=== PATIENT | male | born 1985 | race Caucasian/White ===

== ENCOUNTER 2018-09-10 11:08 | Emergency (ER) | payer OTHER, SELFPAY ==
[2018-09-10 11:10] VITALS: BP 132/87; PULSE 81; RESP 17; TEMP 36.4; O2SAT 100
--- NOTE | 2018-09-10 11:14 | ED.HA ---
HPI - Headache General Chief Complaint: Headache Stated Complaint: MIGRAINE,VOMITING Time Seen by Provider: 09/10/18 11:09 Source: patient Mode of arrival: ambulatory Limitations: no limitations History of Present Illness HPI Narrative: Patient is a 33-year-old otherwise healthy male here for evaluation of a headache. He states that it started this morning when he woke up. He does have a history of headaches. Last 1 was approximately 1 year ago. He did take a Imitrex pill at home however vomited up. No fevers. No neck pain. No trauma. He states that this does feel like his prior headaches. No neck pain. Came in because he thought he was because of the vomiting. Related Data Previous Rx's Medication Instructions Recorded clonazepam [Klonopin] 0.5 mg PO BIDP PRN #60 01/29/17 olopatadine [Patanol] 2 drp OPHTH SEE INSTRUCTIONS #5 ml 02/08/17 ondansetron 4 mg PO Q6-8H PRN #7 tab 09/10/18 Allergies Allergy/AdvReac Type Severity Reaction Status Date / Time erythromycin base Allergy Mild HIVES Unverified 09/10/18 11:45 [ERYTHROMYCIN BASE] ibuprofen [IBUPROFEN] Allergy Mild HIVES Unverified 09/10/18 11:45 Sulfa (Sulfonamide Allergy Mild UNSURE Unverified 09/10/18 11:45 Antibiotics) [SULFA (SULFONAMIDE ANTIBIOTICS)] aspirin AdvReac Hives Verified 09/10/18 11:45 [place]PE Allergy Mild VOMITING Uncoded 09/10/18 11:45 Review of Systems Constitutional Denies fever(s) and Reports headache(s) ENT Ears, Nose, Mouth, and Throat: Denies vertigo, Denies dizziness, Reports headache(s) and Denies disequilibrium Cardiovascular Denies chest pain, Denies syncope and Denies dyspnea Respiratory Denies dyspnea Gastrointestinal Gastrointestinal: Denies abdominal pain, Reports nausea and Reports vomiting Musculoskeletal Denies myalgias and Denies arthralgias Integumentary/Breasts Denies rash Neurologic Denies vertigo, Denies dizziness, Denies syncope, Reports headache(s) and Denies disequilibrium Comments: Photophobia Hematologic/Lymphatic Comments: Not on anticoagulation Allergic/Immunologic Denies urticaria PFSH Medical History Headache (Acute) Surgical History No pertinent past surgical history (Acute) Social History lives independently: Yes Exam Initial Vital Signs Initial Vital Signs: Vital Signs Temperature 97.5 F L 09/10/18 11:10 Pulse Rate 81 09/10/18 11:10 Respiratory Rate 17 09/10/18 11:10 Blood Pressure 132/87 09/10/18 11:10 Pulse Oximetry 100 09/10/18 11:10 Const General: cooperative, comfortable, well developed, No well groomed and No acute distress Orientation: alert, awake and oriented x3 HENMT Head: normal to inspection and normocephalic Ears: hearing grossly normal bilaterally Nose: external nose normal Face and sinus: normal facial exam Mouth: oral mucosae normal Neck Neck: no meningeal signs Lymphatic: No lymphadenopathy Resp Effort & Inspection: normal respiratory effort Auscultation: clear to auscultation bilaterally Cardio Rate: regular rate Rhythm: regular rhythm GI Inspection: non-distended Skin Lesions: no lesions Rashes: no rashes Neuro General: alert, awake and oriented x3 Cranial Nerves: CN's II-XI intact bilaterally Cognition: normal cognition Speech: speech normal Motor: muscle tone normal throughout Sensory Exam: no sensory deficits noted Extrem General: normal to inspection and capillary refill normal Psych Appearance: grossly normal and well kempt Course Orders Ordered: Discontinued Medications Diphenhydramine HCl (Benadryl) 25 mg IV NOW ONE Stop: 09/10/18 11:24 Last Admin: 09/10/18 11:45 Dose: 25 mg Sodium Chloride (Normal Saline 0.9%) 1,000 mls @ 1,000 mls/hr IV BOLUS ONE Stop: 09/10/18 12:22 Last Infusion: 09/10/18 13:25 Dose: 0 mls/hr Admin: 09/10/18 11:46 Dose: 1,000 mls/hr Metoclopramide HCl (Reglan) 10 mg IV NOW ONE Stop: 09/10/18 11:24 Last Admin: 09/10/18 11:46 Dose: 10 mg Vital Signs - 8 hr 09/10/18 11:10 09/10/18 13:05 Temperature 97.5 F L Pulse Rate 81 86 Respiratory Rate 17 17 Blood Pressure 132/87 Blood Pressure [Left Arm] 118/65 Pulse Oximetry 100 100 MDM - Headache MDM Narrative Medical decision making narrative: Patient without signs of meningitis. Low suspicion for subarachnoid hemorrhage. Reports a great improvement of his symptoms after the IV medications here in the emergency department. Patient states he felt like he can go home. He was tolerating oral intake. Will send home with nausea medicine. He was given return precautions. He expressed understanding and agreement with plan. Discharge Plan Departure Patient Disposition: Home Clinical Impression: Headache Instructions: DI for Headache Activity Restrictions/Additional Instructions: Take all of your medications as directed. Return to the emergency department for any new or worsening symptoms Prescriptions: New ondansetron 4 mg tablet,disintegrating 4 mg PO Q6-8H PRN (Reason: nausea and vomiting) Qty: 7 RF: 0 No Action clonazepam [Klonopin] 0.5 MG tablet 0.5 mg PO BIDP PRNQty: 60 RF: 0 olopatadine [Patanol] 5 ML drops 2 drp OPHTH SEE INSTRUCTIONS Qty: 5 RF: 1
[2018-09-10] MEDS: diphenhydrAMINE 50 MG/ML VIAL 25 MG IV (11:45)
[2018-09-10] MEDS: METOCLOPRAMIDE 10 MG/2 ML INJ IV (11:46)
[2018-09-10] MEDS: SODIUM CHLORIDE 0.9% 1,000 ML 1000 ML IV (11:46)
[2018-09-10 13:05] VITALS: BP 118/65; PULSE 86; RESP 17; O2SAT 100
[2018-09-10 14:00] VITALS: BP 113/62; PULSE 70; O2SAT 99
== END 2018-09-10 14:09 | disposition home or self-care (01) ==
PROVIDERS: Emergency Provider Emergency Medicine; PCP Family Medicine
DX: R51 Headache (principal)
CPT/HCPCS: 96361; 96374; 96375; 99283; 99284; J1200; J2765

== ENCOUNTER → 2019-01-30 11:18 | Outpatient (CLI) | payer OTHER, SELFPAY ==
[2019-01-30 11:26] LABS: Bacteria Urine None Seen; RBC Urine None Seen (0-5/HPF); WBC Urine None Seen (0-5/HPF)
[2019-01-30 12:28] LABS: Appearance Urine UA CLEAR; Bilirubin Urine UA NEGATIVE (NEGATIVE); Color Urine UA YELLOW; Glucose Urine UA NEGATIVE (Negative); Ketones Urine UA NEGATIVE (NEGATIVE); Leukocyte Esterase Urine UA NEGATIVE (NEGATIVE); Nitrite Urine UA NEGATIVE (Negative); Occult Blood Urine UA NEGATIVE (Negative); Protein Urine UA NEGATIVE (Negative); Specific Gravity Urine UA 1.025 (1.000-1.035); Urobilinogen Urine UA 0.2 E.U./dL (0.2); pH Urine UA 6.5 (4.5-8.0)
[2019-01-30 12:34] LABS: Add Manual Diff / Slide Review NO; Basophils Absolute Auto 0 /uL (0-100); Basophils Percent Auto 0.1 % (0-2); Eosinophils Absolute Auto 2000 /uL (0-450); Hematocrit 46.5 % (41-53); Hemoglobin 15.9 g/dL (13.5-17.5); Lymphocytes Absolute Auto 1500 /uL (1100-4500); Mean Corpuscular HGB Conc 34.3 % (30-36); Mean Corpuscular Hemoglobin 29.1 PG (26-34); Mean Corpuscular Volume 84.7 fL (80-100); Monocytes Absolute Auto 500 /uL (0-900); Monocytes Percent Auto 7.3 % (3-14); Neutrophils Absolute Auto 3300 /uL (1500-7000); Neutrophils Percent Auto 45.5 % (50-75); Platelet Count 240 X10^3/uL (150-400); Red Blood Cell Count 5.49 X10^6/uL (4.5-5.9); Red Cell Distribution Width 12.9 % (11.6-14.8); White Blood Cell Count 7.3 X10^3/uL (4.5-11.0)
[2019-01-30 12:36] LABS: Eosinophils Percent Auto 27.1 % (2-4)
[2019-01-30 12:41] LABS: Culture Indicated Urine Cult Not Indicated; Squamous Epithelial Cell Urine None Seen (0-5/HPF)
[2019-01-30 12:51] LABS: Alanine Aminotransferase 16 IU/L (21-72); Albumin 4.6 g/dL (3.5-5.0); Albumin Globulin Ratio 1.5 (1.0-2.8); Alkaline Phosphatase 70 U/L (38-126); Amylase 74 U/L (30-110); Aspartate Aminotransferase 27 IU/L (17-59); BUN Creatinine Ratio 16.3 (6-22); Bilirubin Total 0.8 mg/dL (0.2-1.3); Blood Urea Nitrogen 13 mg/dL (9-20); Calcium 9.6 mg/dL (8.4-10.2); Carbon Dioxide 30 mmol/L (22-32); Chloride 102 mmol/L (98-107); Cholesterol 220 mg/dL (140-199); Estimated Glomerular Filt Rate > 60.0 mL/min (>60); Glucose 93 mg/dL (70-100); HDL Cholesterol 49 mg/dL (40-60); HEMOLYSIS < 15 (0-50); LDL Cholesterol Calculated 139 mg/dL (<100); Lipase 50 U/L (23-300); Sodium 142 mmol/L (137-145); Total Protein 7.6 g/dL (6.3-8.2); Triglycerides 159 mg/dL (35-150)
== END ==
PROVIDERS: PCP Family Medicine; Visit Provider Family Medicine
DX: E78.2 Mixed hyperlipidemia (principal); Z13.6 Encounter for screening for cardiovascular disorders; R10.9 Unspecified abdominal pain
CPT/HCPCS: 36415; 80053; 80061; 81001; 82150; 83013; 83690; 85025

== ENCOUNTER → 2019-02-27 14:16 | Outpatient (CLI) | payer OTHER, SELFPAY ==
--- NOTE | 2019-02-27 14:18 | DI.CT.S_ITS ---
PROCEDURE: CT ABDOMEN PELVIS W CON INDICATIONS: abdominal pain TECHNIQUE: After the administration of oral and intravenous contrast, 5 mm thick sections acquired from the diaphragms to the symphysis. 5 mm thick coronal and sagittal reformats were performed. For radiation dose reduction, the following was used: automated exposure control, adjustment of mA and/or kV according to patient size. COMPARISON: None. FINDINGS: Image quality: Excellent. ABDOMEN: Lung bases: Lung bases are clear. Heart size is normal. Solid organs: Liver is normal in size and enhancement. Gallbladder negative. Biliary system is non-dilated. Pancreas enhances normally. Spleen is normal in size and enhancement. No adrenal nodules. Kidneys are normal in size and enhancement, without hydronephrosis. Peritoneum and bowel: Stomach, small bowel, and colon loops are normal in caliber and wall thickness. No free fluid or air. The appendix is within normal limits Rectum is grossly unremarkable Nodes and vessels: No retroperitoneal or mesenteric adenopathy. Aorta and inferior vena cava are normal in caliber. Miscellaneous: Tiny fat containing umbilical hernia. PELVIS: Genitourinary: Bladder wall thickness is normal. Miscellaneous: No inguinal hernias or adenopathy. Bones: No suspicious bony lesions. No vertebral body compression fractures. IMPRESSION: No acute process. Normal appearance of the appendix. Dictated by: Slade Salmeron M.D. on 02/27/2019 at 16:32 Approved by: Slade Salmeron M.D. on 02/27/2019 at 16:37
== END ==
PROVIDERS: PCP Family Medicine; Visit Provider Family Medicine
DX: R10.9 Unspecified abdominal pain (principal); R11.2 Nausea with vomiting, unspecified; R19.7 Diarrhea, unspecified
CPT/HCPCS: 74177; Q9967

== ENCOUNTER → 2019-03-01 16:18 | Outpatient (CLI) | payer OTHER, SELFPAY ==
[2019-03-01 18:04] LABS: Urine N gonorrhoeae NOT DETECTED
[2019-03-01 18:15] LABS: Urine Chlamydia NOT DETECTED
== END ==
PROVIDERS: PCP Family Medicine; Visit Provider Family Medicine
DX: N34.2 Other urethritis (principal)
CPT/HCPCS: 87491; 87591

== ENCOUNTER → 2020-05-20 09:58 | Outpatient (CLI) | payer OTHER, SELFPAY ==
[2020-05-20 10:30] LABS: Add Manual Diff / Slide Review NO; Basophils Absolute Auto 0 /uL (0-100); Basophils Percent Auto 0.7 % (0-2); Eosinophils Absolute Auto 200 /uL (0-450); Eosinophils Percent Auto 3.2 % (2-4); Hemoglobin 16.5 g/dL (13.5-17.5); Lymphocytes Absolute Auto 1700 /uL (1100-4500); Lymphocytes Percent Auto 25.5 % (25-40); Mean Corpuscular HGB Conc 35.1 % (30-36); Mean Corpuscular Hemoglobin 29.8 PG (26-34); Mean Corpuscular Volume 84.8 fL (80-100); Monocytes Absolute Auto 500 /uL (0-900); Monocytes Percent Auto 7.1 % (3-14); Neutrophils Absolute Auto 4300 /uL (1500-7000); Neutrophils Percent Auto 63.5 % (50-75); Platelet Count 208 X10^3/uL (150-400); Red Blood Cell Count 5.54 X10^6/uL (4.5-5.9); White Blood Cell Count 6.8 X10^3/uL (4.5-11.0)
[2020-05-20 11:08] LABS: Alanine Aminotransferase 26 IU/L (<50); Albumin 4.8 g/dL (3.5-5.0); Albumin Globulin Ratio 1.5 (1.0-2.8); Alkaline Phosphatase 87 U/L (38-126); Aspartate Aminotransferase 37 IU/L (17-59); BUN Creatinine Ratio 14.9 (6-22); Bilirubin Total 0.8 mg/dL (0.2-1.3); Blood Urea Nitrogen 11 mg/dL (9-20); Calcium 9.9 mg/dL (8.4-10.2); Carbon Dioxide 27 mmol/L (22-32); Chloride 101 mmol/L (98-107); Estimated Glomerular Filt Rate > 60.0 mL/min (>60); Globulin 3.3 g/dL (1.7-4.1); Glucose 104 mg/dL (70-100); HDL Cholesterol 58 mg/dL (40-60); HEMOLYSIS < 15 (0-50); Potassium 4.4 mmol/L (3.4-5.1); Sodium 137 mmol/L (137-145); Total Protein 8.1 g/dL (6.3-8.2); Triglycerides 463 mg/dL (35-150)
[2020-05-20 11:13] LABS: Cholesterol 336 mg/dL (140-199)
== END ==
PROVIDERS: PCP Family Medicine; Referring Provider Family Medicine; Visit Provider Family Medicine
DX: Z00.00 Encounter for general adult medical examination without abnormal findings (principal); E78.2 Mixed hyperlipidemia
CPT/HCPCS: 36415; 80053; 80061; 85025

== ENCOUNTER 2021-01-15 21:23 | Emergency (ER) | payer OTHER, SELFPAY ==
[2021-01-15 21:40] VITALS: BP 151/85; PULSE 96; RESP 17; TEMP 38.7; O2SAT 97; BMI 28.8
[2021-01-15 23:03] LABS: Adenovirus Not Detected (Not Detect); B. parapertussis Not Detected (Not Detecte); Bordetella pertussis Not Detected (Not Detecte); Chlamydophila pneumoniae Not Detected (Not Detect); Coronavirus 229E Not Detected (Not Detect); Coronavirus HKU1 Not Detected (Not Detect); Coronavirus NL 63 Not Detected (Not Detect); Coronavirus OC43 Not Detected (Not Detect); Human Metapneumovirus Not Detected (Not Detect); Human Rhinovirus/Enterovirus Not Detected (Not Detect); Influenza A Not Detected (Not Detect); Influenza B Not Detected (Not Detect); Mycoplasma pneumoniae Not Detected (Not Detect); Parainfluenza Virus 1 Not Detected (Not Detect); Parainfluenza Virus 2 Not Detected (Not Detect); Parainfluenza Virus 3 Not Detected (Not Detect); Parainfluenza Virus 4 Not Detected (Not Detect); Respiratory Syncytial Virus Not Detected (Not Detect); SARS- CoV-2 Not Detected (Not Detecte)
--- NOTE | 2021-01-16 00:03 | ED_ITS ---
HPI - URI/Sore Throat General Chief Complaint: Upper Respiratory Symptoms Stated Complaint: feels like he has the flu Time Seen by Provider: 01/15/21 23:14 Source: patient Mode of arrival: Ambulatory Limitations: no limitations History of Present Illness HPI Narrative: Patient complains fever body aches and chills since this morning. No coughing nausea vomiting diarrhea. No urinary complaints. Denies any sick contacts. No COVID exposure. Patient is allergic to Motrin. Took Tylenol at 7:30 p.m. tonight. Has had off and on headache. No neck pain. No rash. Related Data Previous Rx's Medication Instructions Recorded atorvastatin 10 mg tablet 10 mg PO DAILY #90 tab 05/30/20 clonazepam 0.5 mg tablet See Rx Instructions PO BID #60 tab 06/19/20 sumatriptan succinate 50 mg tablet See Rx Instructions PO .COMPLEX 06/19/20 #14 tab Allergies Allergy/AdvReac Type Severity Reaction Status Date / Time erythromycin base Allergy Mild HIVES Verified 06/19/20 15:56 [ERYTHROMYCIN BASE] ibuprofen [IBUPROFEN] Allergy Mild HIVES Verified 06/19/20 15:56 Sulfa (Sulfonamide Allergy Mild UNSURE Verified 06/19/20 15:56 Antibiotics) [SULFA (SULFONAMIDE ANTIBIOTICS)] aspirin AdvReac Hives Verified 06/19/20 15:56 [place] Allergy Mild VOMITING Uncoded 06/19/20 15:56 Review of Systems Review of Systems Narrative: GENERAL: Complaint chills, fatigue, malaise, fever, sweats. HEENT: Denies sinus pain, ear pain, sore throat RESPIRATORY: Denies dyspnea, cough CARDIOVASCULAR: Denies chest pain, palpitations GASTROINTESTINAL: Denies nausea, vomiting, abdominal pain : Denies dysuria, frequency, hematuria MUSCULOSKELETAL: Complains muscle or bony pain SKIN: Denies rash, skin lesions NEUROLOGIC: Denies weakness, numbness ROS Unobtainable: All systems reviewed & are unremarkable except as noted in HPI and below Patient History Medical History Headache Surgical History No pertinent past surgical history Social History lives independently: Yes Smoking Status: Never smoker Smoking Status: Never smoker alcohol intake frequency: 0-2 drinks per day Substance Use Type: does not use Exam Narrative Exam Narrative: GENERAL: in no distress, not toxic not dyspneic HEAD: Normocephalic. EYES: Pupils equal round No scleral icterus. No injection no discharge ENT: Mucous membranes moist. NECK: Trachea midline. Full active range of motion of the neck without any pain. No meningeal signs. CARDIOVASCULAR: Regular rate and rhythm without murmurs RESPIRATORY: Clear to auscultation. Breath sounds equal bilaterally. No wheezes, rales, or rhonchi. GASTROINTESTINAL: Abdomen soft, non-tender EXTREMITIES: No gross deformities. BACK: No flank tenderness. NEURO: AOx4. SKIN: Warm and dry PSYCH: Not anxious, is cooperative Initial Vital Signs Initial Vital Signs: Vital Signs Temperature 101.6 F H 01/15/21 21:40 Pulse Rate 96 H 01/15/21 21:40 Respiratory Rate 17 01/15/21 21:40 Blood Pressure 151/85 H 01/15/21 21:40 Pulse Oximetry 97 01/15/21 21:40 Course Orders Ordered: ED Orders 01/15/21 21:44 Respiratory Panel (Film Array) Stat 01/16/21 00:04 XR chest 2V Stat Vital Signs Vital signs: Vital Signs - 8 hr 01/15/21 21:40 01/16/21 00:57 Temperature 101.6 F H 98.7 F Pulse Rate 96 H 85 Respiratory Rate 17 14 Blood Pressure 151/85 H 132/76 Pulse Oximetry 97 98 MDM - URI/Sore Throat Differential Diagnosis Differential diagnosis: Likely upper respiratory infection, viral infection and other (COVID) Lab Data Attestation: I reviewed the patient's lab results. Labs: Lab Results 01/15/21 Range/Units 21:44 Chlamy pneumoniae PCR Not detected (Not Detect) Adenovirus (PCR) Not detected (Not Detect) B. pertussis DNA (PCR) Not detected (Not Detecte) B.parapertussis DNA PCR Not detected (Not Detecte) Coronavirus OC43 (PCR) Not detected (Not Detect) Coronavirus HKU1 (PCR) Not detected (Not Detect) Coronavirus 229E (PCR) Not detected (Not Detect) SARS-CoV-2 (PCR) Not detected (Not Detecte) Coronavirus NL63 (PCR) Not detected (Not Detect) Human Metapneumovir PCR Not detected (Not Detect) Influenza Type A (PCR) Not detected (Not Detect) Influenza Type B (PCR) Not detected (Not Detect) M. pneumoniae (PCR) Not detected (Not Detect) Parainfluenza 1 (PCR) Not detected (Not Detect) Parainfluenza 2 (PCR) Not detected (Not Detect) Parainfluenza 3 (PCR) Not detected (Not Detect) Parainfluenza 4 (PCR) Not detected (Not Detect) RSV (PCR) Not detected (Not Detect) Entero/Rhino (PCR) Not detected (Not Detect) Point of Care Testing Rapid Strep A Negative Imaging Data Chest x-ray: Radiologist's Impression: X-ray chest two view read by overnight radiologist no acute process. MDM Narrative Medical decision making narrative: Appropriate for discharge home. Vital signs reassuring exam reassuring. No meningeal signs. No spinal tap at this time. No headache at this time. Not toxic. No known neck pain. No blood work i ndicated this time. Patient not toxic appearing. Spoke with patient could be false negative COVID test or possibly too early for positive COVID test. He will continue to quarantine himself until fever free. Discharge Plan Departure Patient Disposition: Home Clinical Impression: Viral infection Instructions: DI for Viral Syndrome Activity Restrictions/Additional Instructions: Return if worse or any questions concerns. Continue in Tylenol for pain and fever. See family doctor this week for recheck. Your testing has shown negative for COVID infection. Please continue to quarantine at this time until fever free without use of Tylenol. Various infections are contagious if you continue to have a fever. Keep well hydrated. Prescriptions: No Action atorvastatin 10 mg tablet 10 mg PO DAILY Qty: 90 RF: 3 clonazepam 0.5 mg tablet See Rx Instructions PO BID Qty: 60 RF: 5 sumatriptan succinate [Imitrex] 50 mg tablet See Rx Instructions PO .COMPLEX Qty: 14 RF: 5 Referrals: Joseph Saavedra MD [Primary Care Provider] - Stand Alone Forms: Work Release Note
--- NOTE | 2021-01-16 00:04 | DI.RAD.S_ITS ---
PROCEDURE: XR CHEST 2V INDICATIONS: Fever TECHNIQUE: 2 views of the chest were acquired. COMPARISON: None. FINDINGS: Surgical changes and devices: None. Lungs and pleura: Lungs are clear. No pleural effusions or pneumothorax. Mediastinum: Mediastinal contours are normal. Heart size is normal. Bones and chest wall: No suspicious bony abnormalities. Soft tissues appear unremarkable. IMPRESSION: No acute cardiopulmonary disease process. Dictated by: Jessica English MD, PhD on 01/16/2021 at 8:37 Approved by: Jessica English MD, PhD on 01/16/2021 at 8:38
[2021-01-16 00:57] VITALS: BP 132/76; PULSE 85; RESP 14; TEMP 37.1; O2SAT 98
== END 2021-01-16 00:58 | disposition home or self-care (01) ==
PROVIDERS: Emergency Provider Emergency Medicine; PCP Family Medicine
DX: B34.9 Viral infection, unspecified (principal); R51.9 Headache, unspecified; Z20.822 Contact with and (suspected) exposure to COVID-19
CPT/HCPCS: 71046; 87633; 87880; 99282; 99283

== ENCOUNTER → 2021-04-02 12:29 | Outpatient (CLI) | payer OTHER, SELFPAY ==
[2021-04-02 13:51] LABS: COVID19 -Nasal RAPID Negative (Negative)
== END ==
PROVIDERS: PCP Family Medicine; Visit Provider Nurse Practitioner
DX: Z20.822 Contact with and (suspected) exposure to COVID-19 (principal)
CPT/HCPCS: 87635

== ENCOUNTER → 2021-04-30 09:45 | Outpatient (CLI) | payer OTHER, SELFPAY ==
[2021-04-30 12:09] LABS: COVID19 -Nasal RAPID Negative (Negative)
== END ==
PROVIDERS: PCP Family Medicine; Visit Provider Specialist
DX: Z01.812 Encounter for preprocedural laboratory examination (principal); Z20.822 Contact with and (suspected) exposure to COVID-19
CPT/HCPCS: 87635; C9803

== ENCOUNTER 2021-05-02 06:49 | Day surgery (SDC) | payer OTHER, SELFPAY ==
[2021-05-02] VITALS (7 sets, daily range): BP systolic 113–132; BP diastolic 73–82; PULSE 53–81; RESP 12–16; TEMP 36.2–36.6; O2SAT 98–100; BMI 28.8
[2021-05-02] MEDS: LACTATED RINGERS 1,000 ML 42 ML IV (07:33)
--- NOTE | 2021-05-02 07:44 | PM.HP.1 ---
History of Present Illness History of Present Illness Chief complaint: DX COLONOSCOPY Narrative: The patient is a gentleman who was having rectal bleeding through the month of July. This was with each bowel movement. His bleeding ultimately has stopped but he has very soft stool on crampy abdominal pain. He is brought in for colonoscopy to evaluate this. He desires hemorrhoidal banding if hemorrhoid seem to have been the cause of the problem and they are amenable to banding. Patient History Medical History Headache Surgical History No pertinent past surgical history Family & Social History Family History Father Hypertension Mother Cancer Grandmother Cancer Social History: household members spouse lives independently Yes Tobacco & Substance use: Smoking Status Never smoker alcohol intake frequency 0-2 drinks per day Substance Use Type does not use Meds Home Medications and Allergies Home Medications Medication Instructions Recorded Confirmed Type sodium,potassium,mag sulfates 17.5 See Rx Instructions PO .COMPLEX 04/28/21 Rx gram-3.13 gram-1.6 gram oral soln #354 ml (Suprep Bowel Prep Kit) sumatriptan succinate 50 mg tablet 50 mg PO DAILY PRN 05/02/21 05/02/21 History Allergies Allergy/AdvReac Type Severity Reaction Status Date / Time erythromycin base Allergy Mild HIVES Verified 05/02/21 07:17 [ERYTHROMYCIN BASE] ibuprofen [IBUPROFEN] Allergy Mild HIVES Verified 05/02/21 07:17 Sulfa (Sulfonamide Allergy Mild UNSURE Verified 05/02/21 07:17 Antibiotics) [SULFA (SULFONAMIDE ANTIBIOTICS)] aspirin AdvReac Hives Verified 05/02/21 07:17 [place] Allergy Mild VOMITING Uncoded 03/28/21 14:47 Review of Systems Review of Systems Narrative: Otherwise essentially healthy. Negative review of systems. Exam Vital Signs (past 8 hours): - 05/02/21 07:27 Temperature 97.7 F Pulse Rate 68 Respiratory Rate 16 Blood Pressure 124/79 Pulse Oximetry 98 Oxygen Delivery Method Room Air Narrative Exam Narrative: Pleasant cooperative patient no apparent distress. Lungs are clear to auscultation. No rales or rhonchi. Heart regular rate and rhythm no murmur gallop. Abdomen is soft nontender without mass. No obvious hernias. Patient is alert and oriented x3. Assessment & Plan Assessment and plan (1) Change in bowel habits: Status: Acute (2) Family history of colon cancer in mother: Status: Acute (3) Rectal bleeding: Status: Acute Assessment & Plan narrative: Patient with rectal bleeding and a significant change in his bowel habits which become chronic. He has a family history of colon cancer. I would recommend colonoscopy. Risks and benefits have been discussed with him. He also asked about banding which I explained to him and talked to him about the risk of infection. All questions were answered. Time Spent With Patient Critical Care time: I spent a total of [] minutes of critical care time on this patient's care today; this time is exclusive of procedural time.
--- NOTE | 2021-05-02 07:47 | PM.PREOP ---
Pre-operative Note COVID-19 COVID-19 status: Negative Result date/Date tested (Pos, Neg/Pending): 05/01/21 Interval Note History & Physical reviewed/Exam performed by Physician: Yes Changes to H&P: No ASA Class (for procedural sedation): I
[2021-05-02] MEDS: fentaNYL 250 MCG/5 ML INJ IV (07:57)
[2021-05-02] MEDS: MIDAZOLAM 5 MG/5 ML VIAL IV (07:57)
--- NOTE | 2021-05-02 08:38 | PM.OP.ENDO ---
Operative Date/Time/Diagnoses Date of procedure: 05/02/21 Time of procedure: 08:38 Pre-op diagnosis: Rectal bleeding. Change in bowel habits. Crampy abdominal pain. Post-op diagnosis: same (Possible colitis.) Procedure & Clinicians Study performed: Colonoscopy with cold biopsy. Same procedure as scheduled: Yes Indications: Try to determine cause of rectal bleeding, diarrhea and crampy abdominal pain. Surgeon: Jeffrey Boss Procedure Notes SCOAP/Timeout: Performed Procedure in detail: The patient was placed in the left lateral decubitus position and underwent IV sedation directed by the surgeon consisting of fentanyl and Versed. Digital exam was unremarkable.. The scope was inserted and advanced through the rectum into the sigmoid, descending, transverse, and ascending colon. There was some mild to moderate injection of the wall of the left colon. It seemed to taper off and the appearance became normal as we advanced further. Pressure was applied and we made our way to the cecum. Just beyond the cecum I noted a few diverticuli. Cecum was reached identified by the ileocecal valve and the appendiceal opening. The ileocecal valve was successfully cannulated. The terminal ileum was normal in appearance. There was no evidence of any inflammation of the terminal ileum. The scope was gradually brought out. There were some small polypoid lesions seen. I removed them with cold biopsy forceps. These lesions were found at 60 cm, 35 cm and 15 cm from the anal verge. I suspect that they are lymphatic in nature but am not certain. Random biopsies were taken of the left colon in the rectum. The scope ultimately was retroflexed in the rectum. The appearance was negative for any significant hemorrhoidal disease though there was some minor scarring. The scope was removed and the patient tolerated the procedure well. The prep was excellent. Fluid from the colon was sent for O and P and for GI panel. Scope withdrawal time: 13 minutes total Sedation minutes: 31 Findings: colitis (Possible. Left side principally), diverticulosis (Right colon) and polyp (Small polypoid lesions.) Specimen(s): other (Polyps. Random left colon. Random rectum.) Complications: none Post-procedure Recommendations: Will call with biopsy results Follow up: as needed Disposition: PACU
--- NOTE | 2021-05-02 09:17 | SUR.PHASEII ---
pt given discharge instructions. States he understands discharge instructions. Pt denies any pain and nausea. Pt had a cup of orange juice to be discharged with his father.
[2021-05-02 10:07] LABS: Campylobacter Not Detected (Not Detect); Clostridium difficile toxin AB Not Detected (Not Detect); Plesiomonsa shigelloides Not Detected (Not Detect); Salmonella Not Detected (Not Detect)
[2021-05-02 10:08] LABS: Adenovirus F 40/41 Not Detected (Not Detect); Astrovirus Not Detected (Not Detect); Cryptosporidium Not Detected (Not Detect); Cyclospora cayetanensis Not Detected (Not Detect); Entamoeba histolytica Not Detected (Not Detect); Enteroaggregative E.coli Not Detected (Not Detect); Enteropathogenic E.coli Not Detected (Not Detect); Enterotoxigenic E.coli It/st Not Detected (Not Detect); Giardia lamblia Not Detected (Not Detect); Norovirus GI/GII Not Detected (Not Detect); Rotavirus A Not Detected (Not Detect); Sapovirus Not Detected (Not Detect); Shiga-like toxin-prod E.coli Not Detected (Not Detect); Shigella/Enteroinvasive E.coli Not Detected (Not Detect); Vibrio Not Detected (Not Detect); Vibrio cholerae Not Detected (Not Detect); Yersinia enterocolitica Not Detected (Not Detect)
== END 2021-05-02 09:21 | disposition home or self-care (01) ==
PROVIDERS: Referring Provider Specialist; Visit Provider Specialist
PROC: 0DJD8ZZ Inspection of Lower Intestinal Tract, Via Natural or Artificial Opening Endoscopic (ICD-10-PCS; CPT 45378; principal; 2021-05-02 07:45)
DX: K62.5 Hemorrhage of anus and rectum (principal); R19.4 Change in bowel habit; R10.9 Unspecified abdominal pain; K57.30 Diverticulosis of large intestine without perforation or abscess without bleeding; Z80.0 Family history of malignant neoplasm of digestive organs; K63.5 Polyp of colon
CPT/HCPCS: 45380; 87177; 87507; 99152; 99153; J2250; J3010

== ENCOUNTER → 2021-09-08 10:30 | Outpatient (CLI) | payer OTHER, SELFPAY ==
[2021-09-08 11:52] LABS: COVID19 -Nasal RAPID Negative (Negative)
== END ==
PROVIDERS: Referring Provider Physician Assistant; Visit Provider Physician Assistant
DX: Z20.822 Contact with and (suspected) exposure to COVID-19 (principal)
CPT/HCPCS: 87635

== ENCOUNTER → 2022-02-02 15:47 | Outpatient (CLI) | payer OTHER, SELFPAY ==
[2022-02-02 16:48] LABS: Appearance Urine UA CLEAR; Bilirubin Urine UA NEGATIVE (NEGATIVE); Color Urine UA YELLOW; Glucose Urine UA NEGATIVE (Negative); Ketones Urine UA NEGATIVE (NEGATIVE); Leukocyte Esterase Urine UA NEGATIVE (NEGATIVE); Nitrite Urine UA NEGATIVE (Negative); Occult Blood Urine UA NEGATIVE (Negative); Protein Urine UA NEGATIVE (Negative); Specific Gravity Urine UA 1.015 (1.000-1.035); Urobilinogen Urine UA 0.2 E.U./dL (0.2)
[2022-02-02 17:00] LABS: RBC Urine 0-1/HPF (0-5/HPF); Squamous Epithelial Cell Urine 0-1 /HPF (0-5/HPF); Transitional Epi Cells Urine 0-1/HPF (0-5/HPF); WBC Urine 0-1/HPF (0-5/HPF)
[2022-02-02 17:01] LABS: Bacteria Urine None Seen; Culture Indicated Urine Cult Not Indicated
== END ==
PROVIDERS: PCP Pediatrics; Referring Provider Pediatrics; Visit Provider Pediatrics
DX: R10.9 Unspecified abdominal pain (principal); R30.0 Dysuria
CPT/HCPCS: 81001

== ENCOUNTER → 2022-02-02 17:27 | Outpatient (CLI) | payer OTHER, SELFPAY ==
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
--- NOTE | 2022-02-02 17:30 | DI.RAD.S_ITS ---
PROCEDURE: XR KUB INDICATIONS: stone? TECHNIQUE: One view of the abdomen acquired. COMPARISON: None. FINDINGS: Surgical changes and devices: None. Bowel: Bowel gas pattern is normal. Soft tissues: No suspicious abdominal calcifications. Visualized solid organ contours appear normal in size. Bones: No suspicious bony lesions. IMPRESSION: Normal exam. No evidence for urolithiasis or other significant abnormality. Dictated by: Toribio Henry M.D. on 02/03/2022 at 9:17 Approved by: Toribio Henry M.D. on 02/03/2022 at 9:17
== END ==
PROVIDERS: PCP Pediatrics; Referring Provider Pediatrics; Visit Provider Pediatrics
DX: M47.816 Spondylosis without myelopathy or radiculopathy, lumbar region (principal); R30.0 Dysuria; R10.9 Unspecified abdominal pain; M54.9 Dorsalgia, unspecified
CPT/HCPCS: 72100; 74018; 81001

== ENCOUNTER → 2022-10-25 15:54 | Outpatient (CLI) | payer OTHER, SELFPAY ==
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
== END ==
PROVIDERS: PCP Family Medicine; Referring Provider Physician Assistant; Visit Provider Physician Assistant
DX: M54.2 Cervicalgia (principal)
CPT/HCPCS: 72040

== ENCOUNTER → 2023-12-17 10:14 | Outpatient (CLI) | payer OTHER, SELFPAY ==
[2023-12-17 11:14] LABS: Add Manual Diff / Slide Review NO; Basophils Absolute Auto 0 /uL (0-100); Basophils Percent Auto 0.7 % (0-2); Eosinophils Absolute Auto 200 /uL (0-450); Eosinophils Percent Auto 2.8 % (2-4); Hemoglobin 15.7 g/dL (13.5-17.5); Lymphocytes Absolute Auto 1400 /uL (1100-4500); Lymphocytes Percent Auto 21.2 % (25-40); Mean Corpuscular HGB Conc 34.9 % (30-36); Mean Corpuscular Hemoglobin 30.3 PG (26-34); Mean Corpuscular Volume 86.9 fL (80-100); Monocytes Absolute Auto 500 /uL (0-900); Monocytes Percent Auto 7.2 % (3-14); Neutrophils Absolute Auto 4600 /uL (1500-7000); Neutrophils Percent Auto 68.1 % (50-75); Platelet Count 233 X10^3/uL (150-400); Red Blood Cell Count 5.18 X10^6/uL (4.5-5.9); Red Cell Distribution Width 12.9 % (11.6-14.8); White Blood Cell Count 6.8 X10^3/uL (4.5-11.0)
[2023-12-17 11:23] LABS: Hemoglobin A1C% w Est Avg Glu 5.5 % (4.0-6.0)
[2023-12-17 11:36] LABS: Alanine Aminotransferase 32 IU/L (<50); Albumin 4.7 g/dL (3.5-5.0); Albumin Globulin Ratio 1.6 (1.0-2.8); Alkaline Phosphatase 65 U/L (38-126); Aspartate Aminotransferase 39 IU/L (17-59); BUN Creatinine Ratio 18.8 (6-22); Bilirubin Total 0.8 mg/dL (0.2-1.3); Blood Urea Nitrogen 12 mg/dL (9-20); Calcium 9.6 mg/dL (8.4-10.2); Carbon Dioxide 25 mmol/L (22-32); Chloride 104 mmol/L (98-107); Cholesterol 303 mg/dL (140-199); Estimated Glomerular Filt Rate > 60 mL/min (>60); Globulin 2.9 g/dL (1.7-4.1); Glucose 99 mg/dL (70-100); HDL Cholesterol 59 mg/dL (40-60); HEMOLYSIS < 15 (0-50); LDL Cholesterol Calculated 190 mg/dL (<100); Potassium 4.3 mmol/L (3.4-5.1); Sodium 136 mmol/L (137-145); Total Protein 7.6 g/dL (6.3-8.2); Triglycerides 268 mg/dL (35-150)
[2023-12-17 12:01] LABS: TSH w/ Reflex to FT4 1.24 uIU/mL (0.47-4.68)
== END ==
PROVIDERS: PCP Family Medicine; Referring Provider Family Medicine; Visit Provider Family Medicine
DX: Z00.00 Encounter for general adult medical examination without abnormal findings (principal); G43.909 Migraine, unspecified, not intractable, without status migrainosus; E78.2 Mixed hyperlipidemia; K63.5 Polyp of colon
CPT/HCPCS: 36415; 80053; 80061; 83036; 84443; 85025

== ENCOUNTER 2024-06-12 10:09 | Emergency (ER) | payer OTHER, SELFPAY ==
[2024-06-12 10:21] VITALS: BP 154/99; PULSE 88; RESP 17; TEMP 36.6; O2SAT 98; BMI 28.8
--- NOTE | 2024-06-12 11:29 | DI.CT.S_ITS ---
PROCEDURE: CT UE RT W CON INDICATIONS: ?foreign body TECHNIQUE: After the intra-articular administration of 12 mL of dilute non-ionic contrast, 1-1.5 mm thick sections acquired from the acromioclavicular joint to the inferior scapula, with coronal and sagittal reformatting. COMPARISON: None. FINDINGS: Image quality: Excellent. Bones: The acromioclavicular and the glenohumeral joints are remarkable. No acute fracture or dislocation. No erosion or periosteal thickening to suggest osteomyelitis. Soft tissues: A pain marker is placed about the radial aspect of the proximal forearm. There is minimal subcutaneous edema in the anteromedial mid arm (series 5, image 87). No drainable fluid collection. No foreign body in the elbow and upper arm. Muscles are normal in bulk. The axillary, brachial, and visualized ulnar and radial arteries are grossly patent. The venous system is not opacified, likely secondary to contrast timing. IMPRESSION: 1. No foreign body in the elbow and upper arm. 2. Minimal subcutaneous edema in the anteromedial mid arm. 3. No opacification of the venous system in the upper arm, likely secondary to contrast timing. If there is clinical concern for venous thrombosis, Doppler ultrasound can be considered. Dictated by: Serina Thomson M.D. on 06/12/2024 at 14:33 Approved by: Serina Thomson M.D. on 06/12/2024 at 14:43
--- NOTE | 2024-06-12 11:31 | ED_ITS ---
HPI - Skin/Abscess/Foreign Bdy <Indiana Gastelum PA-C - Last Filed: 06/12/24 15:27> General Chief complaint: Skin/Abscess/Foreign Body Stated complaint: Reaction from blood draw. sent from [facility] Time Seen by Provider: 06/12/24 11:23 Source: patient Mode of arrival: Ambulatory History of Present Illness HPI narrative: 38-year-old male presents to the ED with tenderness and erythema in the right antecubital area status post a venous blood draw 1 week ago. Patient endorses chills. No fever, nausea, vomiting, numbness, tingling, weakness. Patient endorses tenderness in the antecubital region, bruising and streaking proximally from the antecubital region. Related Data Previous Rx's Medication Instructions Recorded sumatriptan succinate 50 mg tablet See Rx Instructions PO .COMPLEX 01/12/23 headaches #9 tabs atorvastatin 10 mg tablet 10 mg PO BEDTIME #90 tabs 12/29/23 cephalexin 500 mg capsule 500 mg PO TID 5 days #15 caps 06/12/24 doxycycline hyclate 100 mg capsule 100 mg PO BID 10 days #20 caps 06/12/24 Allergies Allergy/AdvReac Type Severity Reaction Status Date / Time erythromycin base Allergy Mild HIVES Verified 06/12/24 10:23 [ERYTHROMYCIN BASE] ibuprofen [IBUPROFEN] Allergy Mild HIVES Verified 06/12/24 10:23 Sulfa (Sulfonamide Allergy Mild UNSURE Verified 06/12/24 10:23 Antibiotics) [SULFA (SULFONAMIDE ANTIBIOTICS)] aspirin AdvReac Hives Verified 06/12/24 10:23 [place] Allergy Mild VOMITING Uncoded 06/12/24 10:23 Review of Systems <Indiana Gastelum PA-C - Last Filed: 06/12/24 15:27> Constitutional Constitutional: Reports chills, Denies fatigue, Denies fever(s), Denies frequent falls, Denies lethargy and Denies weakness Eyes Eyes: Denies change in vision, Denies eye discharge, Denies irritation and Denies loss of vision ENT Ears, Nose, Mouth, and Throat: Denies change in voice, Denies dizziness, Denies neck pain, Denies sore throat and Denies throat swelling Cardiovascular Cardiovascular: Denies chest pain, Denies irregular heart rhythm, Denies lightheadedness, Denies palpitations, Denies dyspnea, Denies dyspnea on exertion and Denies orthopnea Respiratory Respiratory: Denies cough, Denies dyspnea, Denies dyspnea on exertion and Denies wheezing Gastrointestinal Gastrointestinal: Denies abdominal pain, Denies change in bowel habits, Denies diarrhea, Denies nausea and Denies vomiting Musculoskeletal Musculoskeletal: Denies neck pain and Denies numbness Integumentary/Breasts Skin/Breast: Denies pruritus, Denies erythema, Denies rash and Denies wounds Comments: Tenderness, bruising, streaking from right AC Neurologic Neurologic: Denies behavioral changes, Denies confusion, Denies dizziness, Denies frequent falls, Denies loss of vision, Denies numbness and Denies weakness Psychiatric Psychiatric: Denies anxiety, Denies behavioral changes, Denies confusion, Denies depression, Denies homicidal ideation and Denies suicidal ideation Endocrine Endocrine: Denies fatigue, Denies flushing and Denies palpitations Hematologic/Lymphatic Hematologic/Lymphatic: Denies easy bruising Allergic/Immunologic Allergic/Immunologic: Denies urticaria, Denies throat swelling and Denies wheezing Patient History <Indiana Gastelum PA-C - Last Filed: 06/12/24 15:27> Medical History Back pain Pancreatitis (~2010) Family history of colon cancer in mother Rectal bleeding Epidermal inclusion cyst of left eyelid Headache Surgical History Anesthesia Ransom teeth removed (~2007) Orbital fracture (~2005) No pertinent past surgical history Family History Father Hypertension Mother Cancer Grandmother Cancer Social History household members: spouse lives independently: Yes Smoking Status: Never smoker Smoking Status: Never smoker alcohol intake frequency: other Substance Use Type: does not use Exam <Indiana Gastelum PA-C - Last Filed: 06/12/24 15:27> Narrative Exam Narrative: Const General:?cooperative, healthy appearing and comfortable [facility] Head:?normal to inspection Ears:?hearing grossly normal bilaterally Nose:?external nose normal Face and sinus:?normal facial exam and sinuses nontender Mouth:?oral mucosae normal Throat:?posterior oropharynx normal Eyes General:?appearance normal, both eyes and all related structures Neck Neck:?normal visual inspection and no lymphadenopathy noted Resp Effort & Inspection:?normal respiratory effort Auscultation:?clear to auscultation bilaterally Cardio Rate:?regular rate Rhythm:?regular rhythm Integumentary There is bruising noted in the right AC with erythema streaking from the AC proximally. Tender to palpation. Compartments are soft. Full range of motion. Strength and sensation is intact. Patient is neurovascularly intact. Neuro General:?patient alert, patient awake and patient oriented x3 Initial Vital Signs Initial Vital Signs: Vital Signs Temperature 97.8 F 06/12/24 10:21 Pulse Rate 88 06/12/24 10:21 Respiratory Rate 17 06/12/24 10:21 Blood Pressure 154/99 H 06/12/24 10:21 Pulse Oximetry 98 06/12/24 10:21 Oxygen Delivery Method Room Air 06/12/24 10:21 <DO Jes Carcamo Last Filed: 06/14/24 17:33> Initial Vital Signs Initial Vital Signs: Vital Signs Temperature 97.8 F 06/12/24 10:21 Pulse Rate 88 06/12/24 10:21 Respiratory Rate 17 06/12/24 10:21 Blood Pressure 154/99 H 06/12/24 10:21 Pulse Oximetry 98 06/12/24 10:21 Oxygen Delivery Method Room Air 06/12/24 10:21 Course <Indiana Gastelum PA-C - Last Filed: 06/12/24 15:27> Orders Ordered: ED Orders 06/12/24 11:29 CT UE RT w con Stat 06/12/24 12:15 CBC Auto Diff [Complete Blood Count AUTO DIFF] Stat CMP [Comprehensive Metabolic Panel] Stat Vital Signs Vital signs: Vital Signs - 8 hr 06/12/24 10:21 Temperature 97.8 F Pulse Rate 88 Respiratory Rate 17 Blood Pressure 154/99 H Pulse Oximetry 98 Oxygen Delivery Method Room Air <DO Jes Carcamo Last Filed: 06/14/24 17:33> Orders Ordered: ED Orders 06/12/24 11:29 CT UE RT w con Stat 06/12/24 12:15 CBC Auto Diff [Complete Blood Count AUTO DIFF] Stat CMP [Comprehensive Metabolic Panel] Stat Vital Signs Vital signs: Vital Signs - 8 hr 06/12/24 10:21 Temperature 97.8 F Pulse Rate 88 Respiratory Rate 17 Blood Pressure 154/99 H Pulse Oximetry 98 Oxygen Delivery Method Room Air MDM - Skin/Abscess/Foreign Bdy <Indiana Gastelum PA-C - Last Filed: 06/12/24 15:27> Lab Data 06/12/24 12:15 06/12/24 12:15 Labs: Lab Results 06/12/24 Range/Units 12:15 WBC 8.6 (4.5-11.0) X10^3/uL RBC 5.29 (4.5-5.9) X10^6/uL Hgb 15.9 (13.5-17.5) g/dL Hct 46.0 (41-53) % MCV 87.0 (80-100) fL MCH 30.1 (26-34) PG MCHC 34.6 (30-36) % RDW 12.7 (11.6-14.8) % Plt Count 230 (150-400) X10^3/uL Neut % (Auto) 71.6 (50-75) % Lymph % (Auto) 17.5 L (25-40) % Nobles % (Auto) 7.7 (3-14) % Eos % (Auto) 2.3 (2-4) % Baso % (Auto) 0.9 (0-2) % Neut # (Auto) 6100 (9662-6239) /uL Lymph # (Auto) 1500 (7013-4132) /uL Nobles # (Auto) 700 (0-900) /uL Eos # (Auto) 200 (0-450) /uL Baso # (Auto) 100 (0-100) /uL Sodium 135 L (137-145) mmol/L Potassium 4.4 (3.4-5.1) mmol/L Chloride 100 (98-107) mmol/L Carbon Dioxide 24 (22-32) mmol/L BUN 8 L (9-20) mg/dL Creatinine 0.68 (0.66-1.25) mg/dL Estimated GFR > 60 (>60) mL/min BUN/Creatinine Ratio 11.8 (6-22) Glucose 99 (70-100) mg/dL Calcium 9.3 (8.4-10.2) mg/dL Total Bilirubin 0.8 (0.2-1.3) mg/dL AST 36 (17-59) IU/L ALT 28 (<50) IU/L Alkaline Phosphatase 74 (38-126) U/L Total Protein 7.7 (6.3-8.2) g/dL Albumin 4.7 (3.5-5.0) g/dL Globulin 3.0 (1.7-4.1) g/dL Albumin/Globulin Ratio 1.6 (1.0-2.8) MDM Narrative Medical decision making narrative: 38-year-old male presents to the ED with tenderness and erythema in the right antecubital area status post a venous blood draw 1 week ago. Concern for cellulitis versus abscess versus retained foreign body versus other. Will obtain imaging to rule out foreign body, abscess. Discussed findings with patient. Prescribed antibiotics for cellulitis. Recommend follow-up with PCP. ED return precautions discussed with patient. Patient agrees to monitor the streaking and return to the ED if symptoms worsen. Medical records reviewed: Yes <Rebeca Rodriguez, - Last Filed: 06/14/24 17:33> Lab Data Labs: Lab Results 06/12/24 Range/Units 12:15 WBC 8.6 (4.5-11.0) X10^3/uL RBC 5.29 (4.5-5.9) X10^6/uL Hgb 15.9 (13.5-17.5) g/dL Hct 46.0 (41-53) % MCV 87.0 (80-100) fL MCH 30.1 (26-34) PG MCHC 34.6 (30-36) % RDW 12.7 (11.6-14.8) % Plt Count 230 (150-400) X10^3/uL Neut % (Auto) 71.6 (50-75) % Lymph % (Auto) 17.5 L (25-40) % Nobles % (Auto) 7.7 (3-14) % Eos % (Auto) 2.3 (2-4) % Baso % (Auto) 0.9 (0-2) % Neut # (Auto) 6100 (4677-2665) /uL Lymph # (Auto) 1500 (0242-0083) /uL Nobles # (Auto) 700 (0-900) /uL Eos # (Auto) 200 (0-450) /uL Baso # (Auto) 100 (0-100) /uL Sodium 135 L (137-145) mmol/L Potassium 4.4 (3.4-5.1) mmol/L Chloride 100 (98-107) mmol/L Carbon Dioxide 24 (22-32) mmol/L BUN 8 L (9-20) mg/dL Creatinine 0.68 (0.66-1.25) mg/dL Estimated GFR > 60 (>60) mL/min BUN/Creatinine Ratio 11.8 (6-22) Glucose 99 (70-100) mg/dL Calcium 9.3 (8.4-10.2) mg/dL Total Bilirubin 0.8 (0.2-1.3) mg/dL AST 36 (17-59) IU/L ALT 28 (<50) IU/L Alkaline Phosphatase 74 (38-126) U/L Total Protein 7.7 (6.3-8.2) g/dL Albumin 4.7 (3.5-5.0) g/dL Globulin 3.0 (1.7-4.1) g/dL Albumin/Globulin Ratio 1.6 (1.0-2.8) Discharge Plan Departure Patient Disposition: Home Clinical Impression: Cellulitis Qualifiers: Site of cellulitis: extremity Site of cellulitis of extremity: upper extremity Laterality: right Qualified Code(s): L03.113 - Cellulitis of right upper limb Instructions: DI for Wound Infection Activity Restrictions/Additional Instructions: Were evaluated in the ED today for a infected arm. Your CT scan was normal. It appears that you have a skin infection that is causing your symptoms. You are being prescribed antibiotics. Please take the antibiotics as prescribed. Please follow-up with your PCP as soon as possible. Return to the ED if you have worsening symptoms. Prescriptions: New doxycycline hyclate 100 mg capsule 100 mg PO BID 10 Days Qty: 20 0RF cephalexin 500 mg capsule 500 mg PO TID 5 Days Qty: 15 0RF No Action sumatriptan succinate 50 mg tablet See Rx Instructions PO .COMPLEX MDD 2 Qty: 9 5RF Rx Instructions: take 1 tab at onset of headache; if no relief may repeat 1 tab after at least 2 hrs; max = 4 tabs/24 hr PO atorvastatin 10 mg tablet 10 mg PO BEDTIME Qty: 90 3RF Referrals: [facility]de, [Primary Care Provider] - Stand Alone Forms: Patient Portal/API/Survey ED Sign-out <Rebeca Rodriguez DO - Last Filed: 06/14/24 17:33> Cosign ED Attending Cosignature Attestation: I was immediately available in the department for consultation.
[2024-06-12 12:21] LABS: Add Manual Diff / Slide Review NO; Basophils Absolute Auto 100 /uL (0-100); Basophils Percent Auto 0.9 % (0-2); Eosinophils Absolute Auto 200 /uL (0-450); Eosinophils Percent Auto 2.3 % (2-4); Hemoglobin 15.9 g/dL (13.5-17.5); Lymphocytes Absolute Auto 1500 /uL (1100-4500); Lymphocytes Percent Auto 17.5 % (25-40); Mean Corpuscular HGB Conc 34.6 % (30-36); Mean Corpuscular Hemoglobin 30.1 PG (26-34); Monocytes Absolute Auto 700 /uL (0-900); Monocytes Percent Auto 7.7 % (3-14); Neutrophils Absolute Auto 6100 /uL (1500-7000); Neutrophils Percent Auto 71.6 % (50-75); Platelet Count 230 X10^3/uL (150-400); Red Blood Cell Count 5.29 X10^6/uL (4.5-5.9); Red Cell Distribution Width 12.7 % (11.6-14.8); White Blood Cell Count 8.6 X10^3/uL (4.5-11.0)
[2024-06-12 12:38] LABS: Alanine Aminotransferase 28 IU/L (<50); Albumin 4.7 g/dL (3.5-5.0); Albumin Globulin Ratio 1.6 (1.0-2.8); Alkaline Phosphatase 74 U/L (38-126); Aspartate Aminotransferase 36 IU/L (17-59); BUN Creatinine Ratio 11.8 (6-22); Bilirubin Total 0.8 mg/dL (0.2-1.3); Blood Urea Nitrogen 8 mg/dL (9-20); Calcium 9.3 mg/dL (8.4-10.2); Carbon Dioxide 24 mmol/L (22-32); Chloride 100 mmol/L (98-107); Estimated Glomerular Filt Rate > 60 mL/min (>60); Glucose 99 mg/dL (70-100); HEMOLYSIS < 15 (0-50); Potassium 4.4 mmol/L (3.4-5.1); Sodium 135 mmol/L (137-145); Total Protein 7.7 g/dL (6.3-8.2)
[2024-06-12 15:03] VITALS: BP 139/88; PULSE 74; RESP 16; O2SAT 99
== END 2024-06-12 15:03 | disposition home or self-care (01) ==
PROVIDERS: Emergency Provider Student in an Organized Health Care Education/Training Program; PCP Family Medicine
DX: L03.113 Cellulitis of right upper limb (principal)
CPT/HCPCS: 36415; 73201; 80053; 85025; 99284

== ENCOUNTER → 2024-12-27 15:55 | Outpatient (CLI) | payer OTHER, SELFPAY ==
[2024-12-27 16:38] LABS: Influenza A - CEPHEID Flu A NEGATIVE (NEGATIVE); Influenza B - CEPHEID Flu B NEGATIVE (NEGATIVE); Respiratory Syncytial Virus Negative (Negative)
[2024-12-27 16:54] LABS: COVID-19 CEPHEID 4-PLEX PCR Negative (Negative)
== END ==
LOC: LAB 15:55
PROVIDERS: PCP Family Medicine; Visit Provider Chiropractor
DX: R05.1 Acute cough (principal)
CPT/HCPCS: 0241U